=== PATIENT | female | born 1965 | race Caucasian/White ===

== ENCOUNTER 2023-03-08 21:49 | Observation (INO) ==
--- NOTE | 2023-03-08 21:57 | ED.PDOC ---
General ED Provider: Dr. OWEN SUNG DO Chief Complaint: Diabetes Stated Complaint: 57 year old female with PMHx of NIDDM, HTN, HLD, and depression who was BIBEMS to the emergency department with chief complaint of high blood glucose readings at home after running out of her diabetes medicines and feeling generally unwell over the last several days. Patients initial blood glucose reported to be > 450. Patient states she has been trying to get her medications filled but has not been able to get an appointment until April. Patient has also run out of her other medications except for her antidepressant which she states she has been taking as directed. Patient otherwise denies recent fever, headache, chest pain, SOB, new cough, N/V/D, dysuria, flank pain, or new focal weakness/numbness. No other associated symptoms or modifying factors at this time. Time Seen by Provider: 03/08/23 21:56 Mode of Arrival: Walk-In Information Source: Patient and EMT Exam Limitations: No limitations Nursing and Triage Documentation Reviewed and Agree: Yes Review of Systems Review Of Systems Constitutional: Reports No symptoms All Other Systems: Reviewed and Negative [facility] Medical History Right rib fracture S22.31XA - Fracture of one rib, right side, initial encounter for closed fracture (ICD-10) Family History DAUGHTER Cancer Diabetes Mother Cancer Diabetes Social History Smoking and tobacco status: Current every day smoker Tobacco type: cigarettes Smoking packs per day: 1 Passive smoking exposure: No Second hand smoke exposure: No Smoking risk assessment performed: No Alcohol intake: never Counseling given: No Counseling provided: none Substance use type: does not use Counseling given: No Counseling provided: none Housing: other Marital status: D Lives independently: No Number of children: 4 service: No FPC: No Current occupational status: disabled Current occupational exposures/hazards: No Pets and animals: No Current gender identity: female Seatbelt use: always Helmet use: No Drives intoxicated or rides with intoxicated rental car ferry driver: No Water heater temperature set < 120 degrees: Yes Working smoke detector in home: Yes Fire extinguisher in home: Yes Carbon monoxide detector in home: Yes Firearms in home: No Surgical History H/O tubal ligation Z98.51 - Tubal ligation status (ICD-10) Female Reproductive History Menstrual Hx Hysterectomy: No Hx Tubal Ligation: Yes Physical Exam Physical Exam Appearance: Reports No pain distress and Well-nourished Ill-appearing: None Pain Distress: None Eyes: Reports MAVIS, EOMI and Conjunctiva clear ENT: Reports Ears normal, Nose normal and Other (partially edentulous) Neck: Supple Respiratory: Reports Airway patent, Breath sounds clear, Breath sounds equal and Respirations nonlabored Cardiovascular: Reports RRR, Pulses normal, No rub and No murmur GI/: Reports Soft, Nontender, No masses, Bowel sounds normal and No Organomegaly Musculoskeletal: Reports Normal strength, ROM intact, No edema and No calf tenderness Skin: Reports Warm, Dry and Normal color Neurological: Reports Sensation intact, Motor intact, Alert and Oriented Psychiatric: Reports Affect appropriate and Mood appropriate Critical Care Note Critical Care Note Total Critical Care Time (mins): 0 Course Course 03/08/23 22:15 03/08/23 22:15 Orders, Labs, Meds: Lab Review 03/08/23 03/08/23 22:15 22:55 WBC 9.38 RBC 4.94 Hgb 14.9 Hct 45.3 MCV 91.7 MCH 30.2 MCHC 32.9 RDW Coeff of Jayla 12.7 Plt Count 168 Immature Gran % (Auto) 0.4 Neut % (Auto) 50.5 Lymph % (Auto) 38.7 [place] % (Auto) 8.0 Eos % (Auto) 1.9 Baso % (Auto) 0.5 Neut # (Auto) 4.7 Lymph # (Auto) 3.6 H [place] # (Auto) 0.8 Eos # (Auto) 0.2 Baso # (Auto) 0.1 Immature Gran # (Auto) 0.0 Sodium 133.1 L Potassium 4.06 Chloride 100.1 Carbon Dioxide 23.3 Anion Gap 13.76 BUN 15.0 Creatinine 0.44 L Estimated GFR (MDRD) 147.00 BUN/Creatinine Ratio 34.09 Glucose 566.0 H* Calcium 9.28 Total Bilirubin 0.45 AST 21.3 ALT 27.9 Alkaline Phosphatase 193.5 H Total Protein 6.88 Albumin 3.72 Globulin 3.16 Albumin/Globulin Ratio 1.17 Urine Color Light Urine Clarity Clear Urine pH 5.5 Ur Specific [place] 1.010 Urine Protein Negative Urine Glucose (UA) 3+ H Urine Ketones Negative Urine Blood Negative Urine Nitrite Negative Urine Bilirubin Negative Urine Urobilinogen 0.2 Ur Leukocyte Esterase Negative Ur Squamous Epith Cells 2-5 Triple Phos Crystals Trace Urine Bacteria Trace Urine Yeast 2+ Orders Category Date Time Status PLACE PATIENT OBSERVATION .TO MEDSURG (NON-MONITORED ADMISSION 03/08/23 23:07 Active BED) ACTIVITY .Up With Assistance CARE 03/08/23 23:07 Active BLOOD GLUCOSE MONITORING (MED/SURG) 0630,1100,1700,2100 CARE 03/08/23 23:08 Active GIVE HS SNACK 2100 CARE 03/08/23 23:08 Active INTAKE & OUTPUT Q8HR CARE 03/08/23 23:07 Active VITAL SIGNS Q4HR CARE 03/08/23 23:07 Active ADA 1800 CIELO. DIET DIETARY 03/08/23 Dinner Ordered HS SNACK DIETARY 03/08/23 Dinner Ordered CBC W/ AUTO DIFF DAILY@0600 LAB 03/09/23 06:00 Ordered CBC W/ AUTO DIFF DAILY@0600 LAB 03/10/23 06:00 Ordered CBC W/ AUTO DIFF Stat LAB 03/08/23 22:15 Completed COMPREHENSIVE METABOLIC PANEL DAILY@0600 LAB 03/09/23 06:00 Ordered COMPREHENSIVE METABOLIC PANEL DAILY@0600 LAB 03/10/23 06:00 Ordered COMPREHENSIVE METABOLIC PANEL Stat LAB 03/08/23 22:15 Completed HEMOGLOBIN A1C Routine LAB 03/08/23 23:07 Ordered SARS COV-2 RNA RAPID SEAN Stat LAB 03/08/23 Ordered URINALYSIS C & S IF INDICATED Stat LAB 03/08/23 22:55 Completed Acetaminophen [Tylenol] Meds 03/08/23 23:07 Active 650 mg PO Q4H PRN Dextrose 50 % in Water [Dextrose 50%-Water Abboject] Meds 03/08/23 23:07 Active 50 ml IVP ONCE PRN Hydralazine HCl Meds 03/08/23 23:10 Active 10 mg IVP Q6H PRN Insulin Lispro [Humalog] Meds 03/08/23 23:07 Active See Protocol SUBCUT PRN PRN Insulin Regular, Human [Humulin R] Meds 03/08/23 21:58 Discontinued 10 unit IVP ONCE STA Ondansetron HCl/Pf [Zofran 4 mg/2 ml] Meds 03/08/23 23:07 Active 4 mg IVP Q6H PRN Ringers Lactated Solution [Lactated Ringers] 1,000 ml Meds 03/08/23 23:11 Active IV 100 mls/hr Sodium Chloride 0.9% [Sodium Chloride] 1,000 ml Meds 03/08/23 21:58 Discontinued IV BOLUS CHEST, 1V AP ONLY Stat RADS 03/08/23 21:57 Completed Medications Generic Name Dose Route Start Last Admin Trade Name Conchita PRN Reason Stop Dose Admin Acetaminophen 650 mg 03/08/23 23:07 Acetaminophen 325 Mg Tablet PO Q4H PRN Mild Pain Dextrose 50 ml 03/08/23 23:07 Dextrose 50 % In Water 50 Ml Disp.Syrin IVP ONCE PRN Unconscious Hypoglycemia Protocol Hydralazine HCl 10 mg 03/08/23 23:10 Hydralazine Hcl 20 Mg/Ml Sdv IVP Q6H PRN Hypertension Lactated Ringer's 1,000 mls @ 100 mls/hr 03/08/23 23:11 Lactated Ringers IV 03/09/23 09:10 .Q10H STA Insulin Human Lispro 0 unit 03/08/23 23:07 Insulin Lispro 100 Unit/Ml (3 Ml) Vial SUBCUT PRN PRN Hyperglycemia Protocol Ondansetron HCl 4 mg 03/08/23 23:07 Ondansetron Hcl/Pf 4 Mg/2 Ml Sdv IVP Q6H PRN Nausea / Vomiting Discontinued Medications Generic Name Dose Route Start Last Admin Trade Name Conchita PRN Reason Stop Dose Admin Sodium Chloride 1,000 mls @ 1,000 mls/hr 03/08/23 21:58 03/08/23 22:15 Sodium Chloride IV 03/08/23 22:57 1,000 mls/hr BOLUS STA Administration Insulin Human Regular 10 unit 03/08/23 21:58 03/08/23 22:39 Insulin Regular, Human 100 Unit/Ml (3ml) Vial IVP 03/08/23 21:59 10 unit ONCE STA Administration Vital Signs: Temp Pulse Resp BP Pulse Ox 03/08/23 21:52 98.0 F 91 24 H 161/82 H 97 Discharge Plan Discharge Patient Disposition: PLACED OBSERVATION Discharge Problem: Acute hyperglycemia Prescriptions: No Action lisinopril 40 mg tablet 40 mg PO DAILY Qty: 30 0RF hydrochlorothiazide 12.5 mg tablet 12.5 mg PO QDAY Qty: 90 0RF fluoxetine [Prozac] 20 mg capsule 20 mg PO QDAY Qty: 90 0RF amlodipine 5 mg tablet 5 mg PO DAILY Qty: 90 0RF Proair Digihaler 90 mcg/actuation aero powdr breath act w/sensor 1 inh inhalation Q4-6H PRN (Reason: shortness of breath or wheezing) Qty: 1 0RF (DME) lancets [OneTouch UltraSoft Lancets] Misc See Rx Instructions .ROUTE .MEDSUPPLY Qty: 100 0RF Patient Comments: PT STATES DOES ACCU CHECK BEFORE BREAKFAST AND BEFORE BED AND NEEDED Rx Instructions: QID - before breakfast lunch and dinner and before bedtime and PRN symptoms (DME) OneTouch Ultra Test Strip See Rx Instructions .ROUTE Qty: 100 0RF Patient Comments: PT STATES DOES ACCU CHECK BID BEFORE BREAKFAST AND BEFORE BED Rx Instructions: QID - before breakfast lunch and dinner and before bed, and PRN symptoms Ozempic 0.25 mg or 0.5 mg(2 mg/1.5 mL) pen injector 0.25 mg subcut QWEEK Qty: 1.5 0RF Rx Instructions: for 4 doses acetaminophen 500 mg tablet 1,000 mg PO Q8H PRN (Reason: PAIN/FEVER) Jardiance 10 mg tablet 10 mg PO DAILY (DME) blood-glucose meter [OneTouch Ultra2 Meter] Kit See Rx Instructions .ROUTE Qty: 1 0RF Rx Instructions: QID - every morning before breakfast, before lunch before dinner and before bedtime and PRN symptoms metformin 1,000 mg tablet 1,000 mg PO BID Qty: 90 1RF Myrbetriq 25 mg tablet extended release 24 hr 25 mg PO QDAY Qty: 90 0RF Did you review [place] IMPROVEMENT ENGINEER for ALL controlled substances?: Not Applicable ED Provider: OWEN SUNG Condition: Stable Physician Progress Note: []
[2023-03-08] MEDS ORDERED: HUMULIN R IVP STA (21:58)
[2023-03-08] MEDS ORDERED: SODIUM CHLORIDE 1,000 ML IV STA (21:58)
[2023-03-08 22:27] LABS: BASOPHILS # (AUTO) 0.1 K/uL (0-0.2); BASOPHILS % (AUTO) 0.5 % (0.0-3.0); EOSINOPHILS # (AUTO) 0.2 K/ul (0.0-0.7); EOSINOPHILS % (AUTO) 1.9 % (0.0-7.0); HEMATOCRIT 45.3 % (37.0-47.0); HEMOGLOBIN 14.9 g/dl (12.0-16.0); IMMATURE GRANULOCYTE % (AUTO) 0.4 % (0.0-5.0); LYMPHOCYTES # (AUTO) 3.6 K/uL (0.60-3.4); LYMPHOCYTES % (AUTO) 38.7 (10.0-50.0); MEAN CORPUSCULAR HEMOGLOBIN 30.2 pg (27.0-31.0); MEAN CORPUSCULAR HGB CONC 32.9 (31.8-35.4); MEAN CORPUSCULAR VOLUME 91.7 fl (81.0-99.0); MONOCYTES # (AUTO) 0.8 K/uL (0.4-2.0); NEUTROPHILS # (AUTO) 4.7 K/ul (2.0-6.9); NEUTROPHILS % (AUTO) 50.5 % (42.2-75.2); PLATELET COUNT 168 10^3/uL (140-440); RDW COEFFICIENT OF VARIATION 12.7 % (11.6-14.8); RED BLOOD COUNT 4.94 10^6/ul (4.20-5.40); WHITE BLOOD COUNT 9.38 K/ul (4.6-10.2)
--- NOTE | 2023-03-08 22:34 | DI ---
EXAM: PORTABLE CHEST HISTORY: Hyperglycemia COMPARISON: Single-view chest 09/19/2021 FINDINGS: The cardiomediastinal silhouette is stable. The lungs are clear bilaterally. There are n o acute osseous abnormalities. IMPRESSION: No evidence of active pulmonary disease
[2023-03-08 22:40] LABS: ALANINE AMINOTRANSFERASE 27.9 U/L (0-35); ALBUMIN 3.72 g/dL (3.5-5.0); ALKALINE PHOSPHATASE 193.5 U/L (38-126); ASPARTATE AMINO TRANSFERASE 21.3 U/L (14-36); BILIRUBIN,TOTAL 0.45 mg/dL (0.2-1.3); CALCIUM 9.28 mg/dL (8.4-10.2); CARBON DIOXIDE 23.3 mmol/L (22-30.0); CHLORIDE 100.1 mmol/L (98-107); CREATININE 0.44 mg/dL (0.60-1.30); POTASSIUM 4.06 mmol/L (3.5-5.1); SODIUM 133.1 mmol/L (134.5-145); TOTAL PROTEIN 6.88 g/dL (6.3-8.2)
[2023-03-08 23:01] LABS: BILIRUBIN,URINE Negative (NEGATIVE); CLARITY,URINE Clear (CLEAR); COLOR,URINE Light (YELLOW); KETONES,URINE Negative (NEGATIVE); LEUKOCYTE ESTERASE ,URINE Negative (NEGATIVE); NITRITE,URINE Negative (NEGATIVE); PH,URINE 5.5 (5-9); PROTEIN,URINE Negative (NEGATIVE); URINE, BLOOD Negative (NEGATIVE); UROBILINOGEN,URINE 0.2 (0.2)
[2023-03-08 23:07] LABS: BACTERIA,URINE TRACE (NOT PRESENT); GLUCOSE, URINE (UA) 3+ (NEGATIVE); YEAST,URINE 2+ (NOT PRESENT)
[2023-03-08] MEDS ORDERED: ZOFRAN 4 MG/2 ML IVP PRN (23:07)
[2023-03-08] MEDS ORDERED: DEXTROSE 50%-WATER ABBOJECT IVP PRN (23:07)
[2023-03-08] MEDS ORDERED: TYLENOL PO PRN (23:07)
[2023-03-08 23:09] LABS: TRIPLE PHOSPHATE CRYSTAL,UR TRACE (NOT PRESENT)
[2023-03-08] MEDS ORDERED: HYDRALAZINE HCL IVP PRN (23:10)
[2023-03-08] MEDS ORDERED: LACTATED RINGERS 1,000 ML IV STA (23:11)
[2023-03-08 23:27] LABS: SARS COV-2 RNA RAPID NAAT NEGATIVE (NEGATIVE)
[2023-03-09] MEDS: HUMALOG SUBCUT PRN ×2 (01:19→06:33)
[2023-03-09 01:20] VITALS: BMI 33.0
[2023-03-09] MEDS ORDERED: VENTOLIN HFA IH PRN (02:18)
[2023-03-09] MEDS ORDERED: TYLENOL PO PRN (06:00)
[2023-03-09 06:01] LABS: BASOPHILS # (AUTO) 0.1 K/uL (0-0.2); BASOPHILS % (AUTO) 0.5 % (0.0-3.0); EOSINOPHILS # (AUTO) 0.2 K/ul (0.0-0.7); EOSINOPHILS % (AUTO) 1.7 % (0.0-7.0); HEMATOCRIT 44.7 % (37.0-47.0); HEMOGLOBIN 14.6 g/dl (12.0-16.0); IMMATURE GRANULOCYTE % (AUTO) 0.3 % (0.0-5.0); LYMPHOCYTES # (AUTO) 3.1 K/uL (0.60-3.4); LYMPHOCYTES % (AUTO) 31.5 (10.0-50.0); MEAN CORPUSCULAR HEMOGLOBIN 30.1 pg (27.0-31.0); MEAN CORPUSCULAR HGB CONC 32.7 (31.8-35.4); MEAN CORPUSCULAR VOLUME 92.2 fl (81.0-99.0); MONOCYTES # (AUTO) 0.9 K/uL (0.4-2.0); MONOCYTES % (AUTO) 8.9 (0-10); NEUTROPHILS # (AUTO) 5.5 K/ul (2.0-6.9); NEUTROPHILS % (AUTO) 57.1 % (42.2-75.2); PLATELET COUNT 162 10^3/uL (140-440); RDW COEFFICIENT OF VARIATION 12.7 % (11.6-14.8); RED BLOOD COUNT 4.85 10^6/ul (4.20-5.40); WHITE BLOOD COUNT 9.69 K/ul (4.6-10.2)
[2023-03-09 06:18] LABS: ALANINE AMINOTRANSFERASE 25.3 U/L (0-35); ALBUMIN 3.38 g/dL (3.5-5.0); ALKALINE PHOSPHATASE 175.3 U/L (38-126); ASPARTATE AMINO TRANSFERASE 21.8 U/L (14-36); BILIRUBIN,TOTAL 0.53 mg/dL (0.2-1.3); BLOOD UREA NITROGEN 14.7 mg/dL (7-17); CALCIUM 8.47 mg/dL (8.4-10.2); CARBON DIOXIDE 25.4 mmol/L (22-30.0); CHLORIDE 105.4 mmol/L (98-107); CREATININE 0.38 mg/dL (0.60-1.30); GLUCOSE 297.4 mg/dL (74-106); POTASSIUM 3.89 mmol/L (3.5-5.1); SODIUM 136.2 mmol/L (134.5-145); TOTAL PROTEIN 6.59 g/dL (6.3-8.2)
[2023-03-09] MEDS ORDERED: JARDIANCE PO SCH (09:00)
[2023-03-09] MEDS ORDERED: HYDROCHLOROTHIAZIDE PO SCH (09:00)
[2023-03-09] MEDS ORDERED: ZESTRIL PO SCH (09:00)
[2023-03-09] MEDS ORDERED: PROZAC PO SCH (09:00)
[2023-03-09] MEDS ORDERED: [UNRECOGNIZED DRUG - OTHER] IH PRN (09:00)
[2023-03-09] MEDS ORDERED: NORVASC PO SCH (09:00)
[2023-03-09] MEDS ORDERED: ALBUTEROL SULFATE IH PRN (09:00)
[2023-03-09] MEDS ORDERED: MYRBETRIQ PO SCH (09:00)
[2023-03-09 10:16] VITALS: BP 161/78; PULSE 83; RESP 20; TEMP 97.5
--- NOTE | 2023-03-09 10:33 | PCM.SS ---
Provider Provider: JENNIFER LUIS PA-C, [facility] Ad[facility] Date Admission Date: 03/08/23 Discharge Date Discharge Date: 03/09/23 Chief Complaint Reason For Visit: HYPERGLCEMIA History of Present Illness History of Present Illness: Admitted 03/08/23 23:38, this 57 year old /WHITE/F with pmhx of hypertension, hyperlipidemia, DMT2, medical noncompliance who presented to ER with cc of high BS. Patient hadn't been feeling well last few days. She states she's been out of her medications the past couple weeks. Her PCP can't see her until April. Labs unremarkable in ER except for glucose >500. She was given fluids and insulin. She received sliding scale insulin and LR overnight. She's feeling at baseline today. Contacted [facility], she hasn't filled most of her medications since September, others longer. She's on amlodipine, hctz, and lisinopril for BP. We will refill lisinopril to start and she can f/u with pcp for others to be added back on. Her metformin was discontinued, unsure why. She is on jardiance and glimepiride, will refill those as well. Will send in her atorvastatin and prozac. 30 days supply. Pt agreeable to plan of care. These medications were called into the pharmacy. [facility] Medical History Right rib fracture S22.31XA - Fracture of one rib, right side, initial encounter for closed fracture (ICD-10) Surgical History H/O tubal ligation Z98.51 - Tubal ligation status (ICD-10) Family History DAUGHTER Cancer Diabetes Mother Cancer Diabetes Social History Smoking and tobacco status: Current every day smoker Tobacco type: cigarettes Smoking packs per day: 1 Passive smoking exposure: No Second hand smoke exposure: No Smoking risk assessment performed: No Alcohol intake: never Counseling given: No Counseling provided: none Substance use type: does not use and marijuana Counseling given: No Counseling provided: none Adopted: No Caregiver/support person: Yes Foster care: No Housing: apartment Marital status: D Lives independently: Yes Daycare: no daycare Number of children: 4 Highest education level completed: 10th grade Financial difficulty paying for basics: not very hard service: No penitentiary: No Current occupational status: disabled Current occupational exposures/hazards: No Pets and animals: No Current gender identity: female Seatbelt use: always Helmet use: No Drives intoxicated or rides with intoxicated pile driver operator: No Current diet type/program: low carbohydrate Caffeine: Yes Water heater temperature set < 120 degrees: Yes Working smoke detector in home: Yes Fire extinguisher in home: Yes Carbon monoxide detector in home: Yes Firearms in home: No Medications Mecications: Medications at Discharge (Home Meds & RX) blood-glucose meter ([employer] Ultra2 Meter kit) #1 10/26/21 albuterol sulfate 90 mcg/actuation breath activated powder inhaler,sensor (Proair Digihaler) 1 inh inhalation Q4-6H PRN shortness of breath or wheezing #1 ea 11/23/21 blood sugar diagnostic (EverlaneTouch Ultra Test strips) #100 ea 11/23/21 lancets (EverlaneTouch UltraSoft Lancets) #100 ea 11/23/21 acetaminophen 500 mg tablet 1,000 mg PO Q8H PRN PAIN/FEVER 03/08/23 aspirin 81 mg tablet,delayed release (Adult Low Dose Aspirin) 81 mg PO DAILY 30 days #30 tabs 03/09/23 atorvastatin 10 mg tablet 10 mg PO BEDTIME #30 tabs 03/09/23 cholecalciferol (vitamin D3) 125 mcg (5,000 unit) tablet (Vitamin D3) 125 mcg PO DAILY 03/09/23 empagliflozin 10 mg tablet (Jardiance) 25 mg (2.5 x 10 mg) PO DAILY #30 tabs 03/09/23 fluoxetine 20 mg capsule (Prozac) 20 mg PO QDAY #30 caps 03/09/23 glimepiride 4 mg tablet 4 mg PO DAILY #30 tabs 03/09/23 lisinopril 40 mg tablet 40 mg PO DAILY High BP #30 tabs 03/09/23 Allergies Allergies Allergy/AdvReac Type Severity Reaction Status Date / Time No Known Allergies Allergy Verified 03/08/23 22:03 Review of Systems Constitutional: Denies Fever, Fatigue, Weakness or Loss of appetite Head: Reports Normocephalic and Atraumatic Cardiovascular: Denies Chest pain or Chest Pressure Respiratory: Denies Cough or Shortness of air Gastrointestinal: Denies Nausea, Vomiting, Diarrhea or Abdominal pain Genitourinary: Denies Dysuria or Frequency Neurological: Denies Headache, Dizziness, Numbness or Weakness Physical Examination Appearance: Positive No Apparent Distress and Alert and Oriented x3 Head: Positive Normocephalic and Atraumatic Heart: Positive RRR Respiratory: Positive Breath Sounds Clear, Bilaterally; Negative Crackles, Rhonchi, Wheezes or Retractions GI/: Positive Soft, Nontender, Bowel sounds normal and No Distention Extremities: Negative Edema Neurological: Positive Cranial nerves intact, Alert and Oriented Psychiatric: Positive Normal Judgement, Normal Insight and Affect Appropriate Vital Signs (Last 4 Hours) Vital Signs Last 4 Hours: Vital Signs: Last 4 Hours 03/09/23 07:00 03/09/23 07:00 03/09/23 08:00 Temperature Temperature Source Pulse Rate Respiratory Rate Blood Pressure Blood Pressure Mean Blood Pressure Location O2 Sat by Pulse Oximetry Oxygen Delivery Method Room Air Room Air Telemetry Type Remote Telemetry Telemetry Monitoring Continues Telemetry Heart Rate 85 EKG MA Interval 0.16 EKG QRS Interval 0.09 Telemetry Strip Reading SR w/PVCs 03/09/23 08:00 03/09/23 08:56 03/09/23 10:00 Temperature 97.5 F L Temperature Source Temporal Artery Scan Pulse Rate 83 Respiratory Rate 20 Blood Pressure 161/78 H Blood Pressure Mean 105 Blood Pressure Location Left Arm O2 Sat by Pulse Oximetry 97 Oxygen Delivery Method Room Air Room Air Room Air Telemetry Type Telemetry Monitoring Telemetry Heart Rate EKG MA Interval EKG QRS Interval Telemetry Strip Reading Labs This Visit Labs This Visit: Labs This Visit 03/08/23 03/08/23 03/08/23 22:15 22:55 23:00 WBC 9.38 RBC 4.94 Hgb 14.9 Hct 45.3 MCV 91.7 MCH 30.2 MCHC 32.9 RDW Coeff of Jayla 12.7 Plt Count 168 Immature Gran % (Auto) 0.4 Neut % (Auto) 50.5 Lymph % (Auto) 38.7 [place] % (Auto) 8.0 Eos % (Auto) 1.9 Baso % (Auto) 0.5 Neut # (Auto) 4.7 Lymph # (Auto) 3.6 H [place] # (Auto) 0.8 Eos # (Auto) 0.2 Baso # (Auto) 0.1 Immature Gran # (Auto) 0.0 Sodium 133.1 L Potassium 4.06 Chloride 100.1 Carbon Dioxide 23.3 Anion Gap 13.76 BUN 15.0 Creatinine 0.44 L Estimated GFR (MDRD) 147.00 BUN/Creatinine Ratio 34.09 Glucose 566.0 H* Hemoglobin A1c 11.00 H D Calcium 9.28 Total Bilirubin 0.45 AST 21.3 ALT 27.9 Alkaline Phosphatase 193.5 H Total Protein 6.88 Albumin 3.72 Globulin 3.16 Albumin/Globulin Ratio 1.17 Urine Color Light Urine Clarity Clear Urine pH 5.5 Ur Specific [place] 1.010 Urine Protein Negative Urine Glucose (UA) 3+ H Urine Ketones Negative Urine Blood Negative Urine Nitrite Negative Urine Bilirubin Negative Urine Urobilinogen 0.2 Ur Leukocyte Esterase Negative Ur Squamous Epith Cells 2-5 Triple Phos Crystals Trace Urine Bacteria Trace Urine Yeast 2+ SARS CoV-2 RNA Rapid SEAN Negative 03/09/23 05:41 WBC 9.69 RBC 4.85 Hgb 14.6 Hct 44.7 MCV 92.2 MCH 30.1 MCHC 32.7 RDW Coeff of Jayla 12.7 Plt Count 162 Immature Gran % (Auto) 0.3 Neut % (Auto) 57.1 Lymph % (Auto) 31.5 [place] % (Auto) 8.9 Eos % (Auto) 1.7 Baso % (Auto) 0.5 Neut # (Auto) 5.5 Lymph # (Auto) 3.1 [place] # (Auto) 0.9 Eos # (Auto) 0.2 Baso # (Auto) 0.1 Immature Gran # (Auto) 0.0 Sodium 136.2 Potassium 3.89 Chloride 105.4 Carbon Dioxide 25.4 Anion Gap 9.29 BUN 14.7 Creatinine 0.38 L Estimated GFR (MDRD) 174.00 BUN/Creatinine Ratio 38.68 Glucose 297.4 H D Hemoglobin A1c Calcium 8.47 Total Bilirubin 0.53 AST 21.8 ALT 25.3 Alkaline Phosphatase 175.3 H Total Protein 6.59 Albumin 3.38 L Globulin 3.21 Albumin/Globulin Ratio 1.05 Urine Color Urine Clarity Urine pH Ur Specific Lee Urine Protein Urine Glucose (UA) Urine Ketones Urine Blood Urine Nitrite Urine Bilirubin Urine Urobilinogen Ur Leukocyte Esterase Ur Squamous Epith Cells Triple Phos Crystals Urine Bacteria Urine Yeast SARS CoV-2 RNA Rapid SEAN Imaging Imaging: EXAM: PORTABLE CHEST HISTORY: Hyperglycemia COMPARISON: Single-view chest 09/19/2021 FINDINGS: The cardiomediastinal silhouette is stable. The lungs are clear bilaterally. There are no acute osseous abnormalities. IMPRESSION: No evidence of active pulmonary disease Review Review Statement: I have independently reviewed and interpreted the labs/EKGs/imaging that were ordered by the ER provider. I have reviewed all outside records that are available currently in our EMR including imaging/notes/labs from previous visits. Plan Reccomendations/Plan: 1. Hyperglycemia in setting of DMT2 and medical noncompliance - Pt states she's been out of her meds for a couple weeks. Pharmacy states she hasn't filled anything since about September. 2. Hypertension - Improved. She was originally prescribed amlodipine, hctz, and lisinopril at one point but hasn't been on any of them in several months. We will start with lisinopril, pcp can add back on as needed. 3. Hyperlipidemia - Took atorvastatin in past, will restart 4. Depression - Took prozac in past, will restart he's on amlodipine, hctz, and lisinopril for BP. We will refill lisinopril to start and she can f/u with pcp for others to be added back on. Her metformin was discontinued, unsure why. She is on jardiance and glimepiride, will refill those as well. Will send in her atorvastatin and prozac. 30 days supply. Pt agreeable to plan of care. These medications were called into the pharmacy. Med compliance encouraged. Discharge diagnoses: 1. Hyperglycemia in setting of uncontrolled DMT2 - improved 2. Hypertension 3. Hyperlipidemia 4. Depression Additional Planning: Case discussed with ED Physician, Dr. Moreno. DVT Prophylaxis: Ambulation Advanced Care Plannin minutes spent discussing advance care planning. FULL CODE Smoking Cessation: 3 minutes spent discussing smoking cessation. Admit to: Obs Discussed Plan of Care with Dr. Meena Brandon. Review With Patient Reviewed with Patient and Family: Patient and family have been counseled on condition and care plan and have no immediate questions. I have personally discussed and reviewed the patient's visit/current labs/imaging/decision making with Dr. Meena Brandon, my supervising attending. Total number of minutes spent with patient [ 85] min. More than 50% of the time spent with this patient was devoted to counseling and coordination of care. Time of Admission:03/08/23 23:38 Time of Discharge: 03/09/23 1015 Discharge Plan Discharge Discharge Orders: Discharge Patient (ONCE); Ordered 03/09/23 Ordered By: JENNIFER LUIS Activity Restrictions/Additional Instructions: DISCHARGE TO HOME MED COMPLIANCE DIET: DIABETIC ACTIVITY: TOLERATED PLEASE FOLLOW UP WITH PCP SCHEDULED PHARMACY: [facility], YOUR REFILLS HAVE BEEN CALLED IN You have an appointment with your primary care provider at [facility] on Apr.03 at 11:15. If you need to reschedule or have any questions their phone number is [phone] Instructions: Diabetic Hyperglycemia (DC) Care Plan Goals: Problem: Altered Blood Glucose Level Goal: Maintain blood glucose level Within Normal Limits Instructions: Diet as ordered Diet consult if indicated Monitor accucheck levels Monitor signs/symptoms of altered glucose Patient Disposition: HOME SELF-CARE Prescriptions: Continued Proair Digihaler 90 mcg/actuation aero powdr breath act w/sensor 1 inh inhalation Q4-6H PRN (Reason: shortness of breath or wheezing) Qty: 1 0RF (DME) lancets [OneTouch UltraSoft Lancets] Misc See Rx Instructions .ROUTE .MEDSUPPLY Qty: 100 0RF Patient Comments: PT STATES DOES ACCU CHECK BEFORE BREAKFAST AND BEFORE BED AND NEEDED Rx Instructions: QID - before breakfast lunch and dinner and before bedtime and PRN symptoms (DME) OneTouch Ultra Test Strip See Rx Instructions .ROUTE Qty: 100 0RF Patient Comments: PT STATES DOES ACCU CHECK BID BEFORE BREAKFAST AND BEFORE BED Rx Instructions: QID - before breakfast lunch and dinner and before bed, and PRN symptoms acetaminophen 500 mg tablet 1,000 mg PO Q8H PRN (Reason: PAIN/FEVER) cholecalciferol (vitamin D3) [Vitamin D3] 125 mcg (5,000 unit) tablet 125 mcg PO DAILY atorvastatin 10 mg tablet 10 mg PO BEDTIME Qty: 30 0RF aspirin [Adult Low Dose Aspirin] 81 mg tablet,delayed release (DR/EC) 81 mg PO DAILY 30 Days Qty: 30 0RF glimepiride 4 mg tablet 4 mg PO DAILY Qty: 30 0RF lisinopril 40 mg tablet 40 mg PO DAILY Qty: 30 0RF fluoxetine [Prozac] 20 mg capsule 20 mg PO QDAY Qty: 30 0RF (DME) blood-glucose meter [[employer] Ultra2 Meter] Kit See Rx Instructions .ROUTE Qty: 1 0RF Rx Instructions: QID - every morning before breakfast, before lunch before dinner and before bedtime and PRN symptoms Changed Jardiance 10 mg tablet 25 mg PO DAILY Qty: 30 0RF Discontinued hydrochlorothiazide 12.5 mg tablet 12.5 mg PO QDAY Qty: 90 0RF Did you review [place] TUBE CUTTER for ALL controlled substances?: Not Applicable Discussed opioids are addictive and Narcan is available by prescription or from pharmacy.: No Condition: Stable
== END 2023-03-09 10:45 | disposition home or self-care (01) ==
LOC: ED 21:49 → MEDSURG B 21:49
PROVIDERS: ADMIT Hospitalist; ATTEND Physician Assistant